=== PATIENT | male | born 1955 | race Caucasian/White ===

== ENCOUNTER 2018-05-26 09:58 | Emergency (ER) | payer OTHER ==
[2018-05-26] MEDS ORDERED: Sodium Chloride 0.9% 10 ML Syringe FLUSH PRN (10:04)
[2018-05-26] MEDS ORDERED: Nitroglycerin 2% Oint 1 GM UD Packet TOP ONE (10:04)
[2018-05-26] MEDS ORDERED: Morphine 2 MG/ML Syringe IVPUSH ONE (10:04)
[2018-05-26] MEDS ORDERED: Ondansetron 4 MG/2 ML SDV IVPUSH ONE (10:04)
[2018-05-26] MEDS ORDERED: Sodium Chloride 0.9% 2.5 ML Syringe FLUSH PRN (10:04)
--- NOTE | 2018-05-26 10:06 | EDM.PDOC ---
ED HPI GENERAL MEDICAL PROBLEM - General Stated Complaint: AMB Time Seen by Provider: 05/26/18 10:04 - History of Present Illness INITIAL COMMENTS - FREE TEXT/NARRATIVE: HISTORY AND PHYSICAL: History of present illness: Patient is 62-year-old white male the history coronary artery disease including myocardial infarction 2 presents with a concern of chest congestion and jaw pain that he noted at work he equivocates regarding any shortness of breath denies palpitations diaphoresis nausea or vomiting Review of systems: As per history of present illness and below otherwise all systems reviewed and negative. Past medical history: As per history of present illness and as reviewed below otherwise noncontributory. Surgical history: As per history of present illness and as reviewed below otherwise noncontributory. Social history: No reported history of drug or alcohol abuse. Family history: As per history of present illness and as reviewed below otherwise noncontributory. Physical exam: HEENT: Atraumatic, normocephalic, pupils reactive, negative for conjunctival pallor or scleral icterus, mucous membranes moist, throat clear, neck supple, nontender, trachea midline. Lungs: Clear to auscultation, breath sounds equal bilaterally, chest nontender. Heart: S1S2, regular, negative for clicks, rubs, or JVD. Abdomen: Soft, nondistended, nontender. Negative for masses or hepatosplenomegaly. Negative for costovertebral tenderness. Pelvis: Stable nontender. Genitourinary: Deferred. Rectal: Deferred. Extremities: Atraumatic, negative for cords or calf pain. Neurovascular unremarkable. Neuro: Awake, alert, oriented. Cranial nerves II through XII unremarkable. Cerebellum unremarkable. Motor and sensory unremarkable throughout. Exam nonfocal. Diagnostics: CBC CMP troponin PT/INR chest x-ray EKG Therapeutics: IV O2 monitor Nitropaste 1 inch to chest wall morphine sulfate 2 mg IV Zofran 4 mg IV patient took aspirin prior to arrival Impression: #1 chest pain #2 history of coronary artery disease with myocardial infarction 2 Definitive disposition and diagnosis as appropriate pending reevaluation and review of above. - Related Data Allergies Allergy/AdvReac Type Severity Reaction Status Date / Time No Known Allergies Allergy Verified 05/26/18 10:33 Home Meds: Home Meds Levothyroxine 100 mcg PO DAILY 04/19/16 [History] Aspirin [Ecotrin] 81 mg PO DAILY 05/26/18 [History] Past Medical History Cardiovascular History: Reports: [place], Stents Endocrine/Metabolic History: Reports: Hypothyroidism - Infectious Disease History Infectious Disease History: Reports: Mumps Social & Family History - Family History Family Medical History: Noncontributory - Caffeine Use Caffeine Use: Reports: None ED ROS GENERAL - Review of Systems Review Of Systems: ROS reveals no pertinent complaints other than HPI. ED EXAM, GENERAL - Physical Exam Exam: See Below (See dictation) Course - Vital Signs Last Recorded V/S: Last Vital Signs Temp 36.7 C 05/26/18 09:58 Pulse 79 05/26/18 09:58 Resp 18 05/26/18 09:58 BP 150/100 H 05/26/18 09:58 Pulse Ox 96 05/26/18 09:58 - Orders/Labs/Meds Orders: Active Orders 24 hr Category Date Time Status Cardiac Monitoring [RC] . DIRECTED Care 05/26/18 10:04 Active EKG Documentation Completion [RC] STAT Care 05/26/18 10:04 Active Oxygen Therapy, ED [RC] ASDIRECTED Care 05/26/18 10:04 Active B-TYPE NATRIURETIC PEPTIDE,BNP [CHEM] Stat Lab 05/26/18 10:00 Received COMPREHENSIVE METABOLIC PN,CMP [CHEM] Stat Lab 05/26/18 10:00 Received TROPONIN I [CHEM] Stat Lab 05/26/18 10:00 Received Sodium Chloride 0.9% [Normal Saline] 1,000 ml Med 05/26/18 10:15 Active IV STAT Sodium Chloride 0.9% [Saline Flush] Med 05/26/18 10:04 Active 10 ml FLUSH ASDIRECTED PRN Sodium Chloride 0.9% [Saline Flush] Med 05/26/18 10:04 Active 2.5 ml FLUSH ASDIRECTED PRN Saline Lock Insert [OM.PC] Stat Oth 05/26/18 10:04 Ordered Medication Orders Sodium Chloride (Normal Saline) 1,000 mls @ 125 mls/hr IV STAT KASSIE Last Admin: 05/26/18 10:19 Dose: 125 mls/hr Sodium Chloride (Saline Flush) 10 ml FLUSH ASDIRECTED PRN PRN Reason: Keep Vein Open Sodium Chloride (Saline Flush) 2.5 ml FLUSH ASDIRECTED PRN PRN Reason: Keep Vein Open Labs: Laboratory Tests 05/26/18 05/26/18 Range/Units 10:00 10:00 WBC 6.20 (4.0-11.0) K/uL RBC 4.64 (4.50-5.90) M/uL Hgb 14.3 (13.0-17.0) g/dL Hct 42.3 (38.0-50.0) % MCV 91.2 (80.0-98.0) fL MCH 30.8 (27.0-32.0) pg MCHC 33.8 (31.0-37.0) g/dL RDW Std Deviation 45.5 (28.0-62.0) fl RDW Coeff of Dimitri 14 (11.0-15.0) % Plt Count 207 (150-400) K/uL MPV 9.40 (7.40-12.00) fL Neut % (Auto) 78.6 (48.0-80.0) % Lymph % (Auto) 10.6 L (16.0-40.0) % [place] % (Auto) 9.4 (0.0-15.0) % Eos % (Auto) 1.1 (0.0-7.0) % Baso % (Auto) 0.3 (0.0-1.5) % Neut # (Auto) 4.9 (1.4-5.7) K/uL Lymph # (Auto) 0.7 (0.6-2.4) K/uL [place] # (Auto) 0.6 (0.0-0.8) K/uL Eos # (Auto) 0.1 (0.0-0.7) K/uL Baso # (Auto) 0.0 (0.0-0.1) K/uL Nucleated RBC % 0.0 /100WBC Nucleated RBCs # 0 K/uL INR 1.03 Meds: Medications Generic Name Dose Route Start Last Admin Trade Name Freq PRN Reason Stop Dose Admin Sodium Chloride 1,000 mls @ 125 mls/hr 05/26/18 10:15 05/26/18 10:19 Normal Saline IV 125 mls/hr STAT KASSIE Administration Sodium Chloride 10 ml 05/26/18 10:04 Saline Flush FLUSH ASDIRECTED PRN Keep Vein Open Sodium Chloride 2.5 ml 05/26/18 10:04 Saline Flush FLUSH ASDIRECTED PRN Keep Vein Open Discontinued Medications Generic Name Dose Route Start Last Admin Trade Name Andrew PRN Reason Stop Dose Admin Aspirin 162 mg 05/26/18 10:07 05/26/18 10:12 Aspirin PO 05/26/18 10:08 162 mg ONETIME ONE Administration Aspirin Confirm 05/26/18 10:09 05/26/18 10:26 Aspirin Administered 05/26/18 10:10 Not Given Dose 162 mg .ROUTE .STK-MED ONE Morphine Sulfate 2 mg 05/26/18 10:04 05/26/18 10:12 Morphine IVPUSH 05/26/18 10:05 2 mg ONETIME ONE Administration Nitroglycerin 1 gm 05/26/18 10:04 05/26/18 10:12 Nitro-Bid 2% TOP 05/26/18 10:05 1 gm ONETIME ONE Administration Ondansetron HCl 4 mg 05/26/18 10:04 05/26/18 10:12 Zofran IVPUSH 05/26/18 10:05 4 mg ONETIME ONE Administration Departure - Departure Time of Disposition: 10:47 Disposition: DC/Tfer to Acute Hospital 02 Condition: Good Clinical Impression: Chest pain - Discharge Information - My Orders Last 24 Hours: My Active Orders 05/26/18 10:00 B-TYPE NATRIURETIC PEPTIDE,BNP [CHEM] Stat COMPREHENSIVE METABOLIC PN,CMP [CHEM] Stat TROPONIN I [CHEM] Stat 05/26/18 10:04 Cardiac Monitoring [RC] . DIRECTED EKG Documentation Completion [RC] STAT Oxygen Therapy, ED [RC] ASDIRECTED Sodium Chloride 0.9% [Saline Flush] 10 ml FLUSH ASDIRECTED PRN Sodium Chloride 0.9% [Saline Flush] 2.5 ml FLUSH ASDIRECTED PRN Saline Lock Insert [OM.PC] Stat 05/26/18 10:15 Sodium Chloride 0.9% [Normal Saline] 1,000 ml IV STAT - Assessment/Plan Last 24 Hours: My Active Orders 05/26/18 10:00 B-TYPE NATRIURETIC PEPTIDE,BNP [CHEM] Stat COMPREHENSIVE METABOLIC PN,CMP [CHEM] Stat TROPONIN I [CHEM] Stat 05/26/18 10:04 Cardiac Monitoring [RC] . DIRECTED EKG Documentation Completion [RC] STAT Oxygen Therapy, ED [RC] ASDIRECTED Sodium Chloride 0.9% [Saline Flush] 10 ml FLUSH ASDIRECTED PRN Sodium Chloride 0.9% [Saline Flush] 2.5 ml FLUSH ASDIRECTED PRN Saline Lock Insert [OM.PC] Stat 05/26/18 10:15 Sodium Chloride 0.9% [Normal Saline] 1,000 ml IV STAT
[2018-05-26] MEDS ORDERED: Aspirin 81 MG Tab.Chew PO ONE (10:07)
[2018-05-26] MEDS ORDERED: Aspirin 81 MG Tab.Chew ONE (10:09)
[2018-05-26] MEDS ORDERED: Sodium Chloride 0.9% 1,000 ML IV SCH (10:15)
--- NOTE | 2018-05-26 10:32 | CR ---
EXAMINATION: Portable chest radiograph. HISTORY: Shortness of breath. FINDINGS: The trachea is midline. The cardiomediastinal silhouette is within normal limits. No pulmonary infiltrates, effusions or pneumothorax. Interstitial prominence is noted. Osseous structures appear unremarkable. IMPRESSION: No acute cardiopulmonary process.
[2018-05-26 10:48] LABS: CHLORIDE,CL 107 mmol/L (98-107); SODIUM,NA 142 mmol/L (136-148)
[2018-05-26 11:27] VITALS: BP 152/99
== END 2018-05-26 11:30 ==
LOC: MW.ED 09:58
DX: R07.9 Chest pain, unspecified (principal); I25.2 Old myocardial infarction; E03.9 Hypothyroidism, unspecified; Z79.82 Long term (current) use of aspirin
CPT/HCPCS: 36415; 71045; 80053; 83880; 84484; 85025; 85610; 87804; 93005; 96361; 96374; 96375; 99285; A9270; J2270; J2405; J7040